=== PATIENT | male | born 1955 | race Two or more races ===

== ENCOUNTER 2024-04-21 12:22 | Emergency (ER) | payer MEDICARE, OTHER, SELFPAY ==
[2024-04-21 12:46] VITALS: BP 156/73
[2024-04-21 13:28] LABS: % Basophils 0.3 % (0-2); % Eosinophils 1.6 % (0-6); % Immature Granulocytes 0.4 % (0-0.5); % Lymphocytes 8.9 % (20.5-51.1); % Monocytes 4.6 % (1.7-9.3); % Neutrophils 84.2 % (42.2-75.2); Absolute Eosinophils 0.2 10^3/uL (0-0.7); Absolute Lymphocytes 0.9 10^3/uL (1.2-3.4); Absolute Monocytes 0.5 10^3/uL (0.1-0.6); Absolute Neutrophils 8.9 10^3/uL (1.4-6.5); Hematocrit 38.7 % (39.0-52.0); Hemoglobin 13.6 g/dL (13.0-18.0); Mean Corp Hgb Conc. 35.1 g/dL (33.0-37.0); Mean Corpuscular Hgb 31.1 pg (27.0-31.0); Mean Corpuscular Volume 88.6 fL (80.0-94.0); Mean Platelet Volume 9.4 fL (7.4-10.4); Nucleated Red Blood Cells % 0 % (-); Platelet Count 248 10^3/uL (130-400); Red Blood Cell Count 4.37 10^6/uL (4.70-6.10); Red Cell Dist. Width 12.3 % (11.5-14.5); White Blood Cell Count 10.5 10^3/uL (4.8-10.8)
[2024-04-21 13:33] LABS: Lactic Acid 1.7 mmol/L (0.7-2.0)
[2024-04-21 13:34] LABS: ALT (SGPT) 28 U/L (0-50); AST (SGOT) 31 U/L (17-59); Blood Urea Nitrogen 16 mg/dl (9-20); Carbon Dioxide 27 mmol/L (22-30); Glucose 158 mg/dl (70-99); Total Protein 6.5 g/dl (6.3-8.2); eGFR > 60.00
[2024-04-21 13:36] LABS: Alkaline Phosphatase 99 U/L (38-126); Chloride 91 mmol/L (98-107); Potassium 4.3 mmol/L (3.5-5.1); Sodium 129 mmol/L (135-145)
[2024-04-21 16:23] VITALS: BP 161/71
--- NOTE | 2024-04-21 19:06 | ED.GENMED ---
History of Present Illness
General
Chief Complaint: Fever
Time Seen by Provider: 04/21/24 18:47
Travel History
Have you had any contact with someone who has COVID-19?: No
Do you have any symptoms of coronavirus? Fever > 100 degrees, chills, cough, shortness of breath, sore throat, loss of taste or smell, muscle aches, or headache?: No
History of Present Illness
History of Present Illness:
Patient is a 68-year-old male with past medical history of hypertension, hyperlipidemia, hypothyroidism, psoriasis, and diabetes, here today for evaluation of a fever.
Patient states he has had a fever over the past 5 to 6 days. Fever is persistent and occurring daily with Tmax 103 �F. Fever has been resolved with antipyretics. He also endorses fatigue/body aches, cough, and a headache. Patient denies sore
throat or rhinorrhea. No vomiting. No abdominal pain or diarrhea. Patient endorses mild dysuria and decreased urine output. No hematuria. The patient also reports developing a rash along his chest and back earlier today. No pain or pruritus.
No new soaps or detergents/new products. No chest pain/shortness of breath.
The patient does report undergoing a colonoscopy this past 04/16/2024. He did have removal of a lesion and this has been sent for pathology but results are not back yet.
The patient states he was seen at an outside emergency department this past and underwent testing which was within normal limits including blood work and a CAT scan of the abdomen pelvis. Patient was told he likely had a viral syndrome.
Symptoms are persistent. Patient was seen in the urgent care prior to arrival and had a viral testing including COVID�19/influenza and urine testing which were all normal. Patient was directed to the emergency department for further testing and
evaluation.
Past History
Past History
ED Past Medical History: HTN, Hypercholesterolemia, IDDM and Hypothyroidism
ED Past Surgical History: None
Social History
Tobacco: Non-smoker
Alcohol: Occasional
Drug: None
Personal:
Living: with family
Employment: Employed
Family History
Family History: Other (No past medical history of aortic aneurysm or dissection nor is there a history of this in the family)
Review of Systems
Review of Systems
All Other Systems: ROS reviewed and negative except as documented in HPI and ROS
Phy Exam
Physical Exam
Physical Exam:
GENERAL: Alert , in no apparent distress
EYE: pupils equal and reactive
NECK: Supple, no significant adenopathy.
ENT: o/p clr, mmm.
CARDIAC: Regular rate and rhythm .
LUNGS: Clear breath sounds bilaterally, no acute respiratory distress, no wheezes/rales/rhonchi
ABDOMEN: Soft, without focal tenderness, no r/g, no cvat
NEUROLOGICAL: Alert and oriented, no focal neuro deficits
SKIN: Warm and dry, skin intact. Erythematous small maculopapular lesions noted along the patient's chest and back, no ulcerations, no drainage, no tenderness, no petechia or purpura, no skin sloughing, no ulcerations, no vesicles, no pustules
MUSCULOSKELETAL: No edema, well perfused.
PSYCH: Normal and appropriate interaction.
Course
Orders/Labs/Results
Orders:
Orders
04/21/24 13:04
Complete Blood Count/With Diff Urgent
Comprehensive Metabolic Panel Urgent
Lactic Acid Q4H
Comment: ON ICE, CANCEL 2ND ORDER IF FIRST LACTIC ACID LEVEL <2
Blood Culture Q30M
MIRIAN Source: Blood/Venous
Specimen Description:
Comment: FROM 2 SEPARATE SITES
04/21/24 19:01
CR Chest - 2 Views Urgent
Comment:
Reason For Exam: fever
04/21/24 19:25
COVID-19 Antigen Urgent
Source: Nasal Swab
Urinalysis Reflex To Culture Urgent
Date Specimen was Collected: 04/21/24
Time Specimen was Collected: 19:14
Urine Microscopic Reflex Cult Urgent
Influenza A+B Rapid Molecular Urgent
MIRIAN Source: Nasal Swab
Specimen Description:
04/21/24 21:31
Urine Culture Urgent
MIRIAN Source: Urine
Specimen Description:
04/21/24 21:34
Blood Culture Urgent
MIRIAN Source: Blood/Venous
Specimen Description:
Abnormal Lab Results
04/21/24 04/21/24
13:04 19:25
RBC 4.37 L 10^6/uL
(4.70-6.10)
Hct 38.7 L %
(39.0-52.0)
MCH 31.1 H pg
(27.0-31.0)
Absolute Neuts (auto) 8.9 H 10^3/uL
(1.4-6.5)
Absolute Lymphs (auto) 0.9 L 10^3/uL
(1.2-3.4)
Neutrophils % 84.2 H %
(42.2-75.2)
Lymphocytes % 8.9 L %
(20.5-51.1)
Sodium 129 L mmol/L
(135-145)
Chloride 91 L mmol/L
(98-107)
Glucose 158 H mg/dl
(70-99)
Urine Ketones 3+ A
(Negative)
Urine Bilirubin 1+ A
(Negative)
Urine Urobilinogen 2+ A
(Neg - 1+)
Leukocyte Esterase Rfl Trace A
(Negative)
Urine Bacteria (Reflex) Few A
(Negative)
04/21/24 13:04
04/21/24 13:04
Vital Signs
Initial and Last Documented VS:
Initial Vital Signs
Temp Pulse Resp BP Pulse Ox
99.3 F 85 18 156/73 98
04/21/24 12:46 04/21/24 12:46 04/21/24 12:46 04/21/24 12:46 04/21/24 12:46
Last Documented Vital Signs
Temp Pulse Resp BP Pulse Ox
98.5 F 74 17 120/54 96
04/21/24 20:55 04/21/24 20:55 04/21/24 16:23 04/21/24 20:55 04/21/24 20:55
MDM/Problems Addressed
Differential Diagnosis Includes:
Patient is a 68-year-old male with past medical history of hypertension, hyperlipidemia, hypothyroidism, psoriasis, and diabetes, here today for evaluation of a fever. Overall, patient appears very well. Vitals remarkable for a mildly elevated
blood pressure. Physical examination described above. Will obtain screening labs and urinalysis. Will obtain chest x-ray. Will obtain blood cultures. NPO.
04/21/2024 21:20: Screening labs reveal a normal WBC count of 10.5. Sodium mildly decreased at 129. Chloride 91. Normal lactic acid. Urinalysis with 3+ ketones, trace leukocyte esterase, and 0-2 RBCs/WBCs. There is few bacteria present. Chest
x-ray negative. Viral testing negative. Discussed additional diagnostic/treatment options with patient. Discussed admission to the hospital following urine and blood cultures versus being discharged with supportive measures and close follow-up
with his doctor/awaiting cultures. Patient declines wanting admission to the hospital and would prefer to be discharged at this time. Will discharge with recommendations for close follow-up with the patient's family doctor. Recommend supportive
measures for suspected viral syndrome. Patient given strict return precautions for worsening symptoms. All questions answered. Stable for discharge. Case discussed with attending, Dr. Woodward.
*Critical Care Note
Total Time (30-74mins, 75-104mins- exclusive of procedures): Not Applicable
ED Attending Note
-
Portions of this chart may have been created with voice recognition software.� Occasional wrong word or��sound alike� substitutions may have occurred due to the inherent limitations of voice recognition software.
Discharge Plan
Departure
Patient Disposition: Home (Routine Discharge)
Date of Disposition: 04/21/24
Time of Disposition: 21:27
Patient with high blood pressure during this ER visit?: Yes
Condition: Fair
Covid-19: Negative COVID-19
Discharge Problem:
Fever, Cough
Instructions: Fever, Adult (DC)
Prescriptions:
No Action
latanoprost 2.5 ML drops
1 drp BOTH EYES QPM
Patient Comments:
BOTH EYES
atorvastatin 10 MG tablet
10 mg PO QPM
insulin aspart U-100 [Novolog U-100 Insulin aspart] 1,000 UNITS/10 ML solution
SC Qty: 0
Patient Comments:
pump
levothyroxine 200 MCG tablet
200 mcg PO DAILY
ramipril 5 MG capsule
10 mg PO DAILY
amoxicillin-pot clavulanate 1 TABLET tablet
1 tab PO Q12 Qty: 14 0RF
Referrals:
Collette Gallardo, [Family Provider] - Follow up in 2-3 days
Activity Restrictions/Additional Instructions:
You were seen today for evaluation of a fever.
The etiology of your fever is not known at this time but may be secondary to a virus.
We are sending additional studies and we will contact you with positive results.
Rest. Drink plenty of fluids. Take [id number] ibuprofen and Tylenol as directed as needed for fever.
Follow-up with your doctor within the next 2 to 3 days for close reevaluation.
Return for any new, worsening, or concerning symptoms.
Interventions
Interventions:
*Risk Screen - Suicide Last Done: 04/21/24 12:46
*General Assessment Last Done: 04/21/24 12:46
*Neglect/Abuse Screening Last Done: 04/21/24 12:46
ED- Fall Risk Assessment Last Done: 04/21/24 19:55
*ED COVID-19 Vaccine History Last Done: 04/21/24 12:46
ED- Neurological Assessment Last Done: 04/21/24 19:55
ED-Skin Assessment Last Done: 04/21/24 19:55
Discharge Date and Time
Print Language: AZERI
[2024-04-21 19:50] LABS: Urine Albumin Trace (Neg - Trace); Urine Bilirubin 1+ (Negative); Urine Character Clear (Clear); Urine Color Yellow; Urine Glucose Negative (Negative); Urine Ketone 3+ (Negative); Urine Leukocyte Trace (Negative); Urine Nitrite Negative (Negative); Urine Occult Blood Negative (Negative); Urine Specific Gravity 1.015 (<1.030); Urine Urobilinogen 2+ (Neg - 1+)
[2024-04-21 19:51] LABS: COVID-19 Antigen Negative (Negative)
[2024-04-21 20:19] LABS: Urine Bacteria Few (Negative); Urine Red Blood Cell 0-2 /HPF (0-2); Urine Squamous Cell 0-2 /LPF (Few); Urine White Cell 0-2 /HPF (0-5)
[2024-04-21 20:20] LABS: Urine Mucus Moderate
[2024-04-21 20:50] VITALS: BMI 32.0
[2024-04-21 20:55] VITALS: BP 120/54
== END 2024-04-21 22:07 | disposition home or self-care (01) ==
LOC: EMR 12:22
PROVIDERS: Emergency Medicine; Physician Assistant; EMERGENCY PHYSICIAN Emergency Medicine; FAMILY PHYSICIAN Family Medicine
DX: R50.9 Fever, unspecified (principal); R05.9 Cough, unspecified; R30.0 Dysuria; R21 Rash and other nonspecific skin eruption; Z11.52 Encounter for screening for COVID-19; I10 Essential (primary) hypertension; E11.9 Type 2 diabetes mellitus without complications; E78.00 Pure hypercholesterolemia, unspecified; E03.9 Hypothyroidism, unspecified; Z79.4 Long term (current) use of insulin; Z86.010 Personal history of colon polyps; Z98.890 Other specified postprocedural states; Z88.0 Allergy status to penicillin
CPT/HCPCS: 99283; 71046; 80053; 81003; 81015; 83605; 85025; 87040; 87502; 87811